=== PATIENT | female | born 1940 | race Two or more races ===

== ENCOUNTER 2023-03-17 00:53 | Emergency (ER) | payer MEDICARE, OTHER ==
[~2023-03-17] VITALS: Ht 165.1 cm; Wt 75.0 kg
[2023-03-17 01:15] VITALS: TEMP 98
[2023-03-17 01:37] VITALS: BP 132/71; PULSE 69; RESP 16
[2023-03-17] MEDS ORDERED: AMOX TR/POT CLAV 875 MG/125 MG TABLET PO ONE (01:45)
[2023-03-17] MEDS ORDERED: AMOX1TAB16 PO (01:49)
== END 2023-03-17 02:31 | disposition home or self-care (01) ==
LOC: EMS 00:54
DX: K08.89 Other specified disorders of teeth and supporting structures (principal)
CPT/HCPCS: 99283